=== PATIENT | female | born 1960 | race Caucasian/White ===

== ENCOUNTER 2016-07-31 10:39 | Emergency (ER) | payer SELFPAY ==
[~2016-07-31] VITALS: Ht 170.2 cm; Wt 75.0 kg
[2016-07-31 10:42] VITALS: BP 144/80; PULSE 87; RESP 18; TEMP 98; O2SAT 96
--- NOTE | 2016-07-31 11:46 | PD ---
HPI Chief Complaint: Neuro Symptoms/ Deficits Time Seen by Provider: 11:46 Travel History International Travel<30 days: No Contact w/Intl Traveler<30days: No Traveled to known affect area: No History of Present Illness HPI Patient is a 56-year-old female presenting to emergency evaluation of headache as well as right arm numbness. Patient states the headache has been ongoing for approximately one month. She states it is pressure-like all over her head into her neck. She reports the pain as an 8 out of 10. She states the right arm numbness started 3-4 days ago it radiates down her arm and she feels tingling and her entire hand. She also reports feeling fatigued and just generally weak. She denies any recent fevers or chills, abdominal pain, nasal congestion. She does report nausea intermittently as well as a recent bout of diarrhea but that resolved 2 days ago and only lasted for 2 days. Patient's past medical history significant for diabetes, hypothyroidism, hypertension, hyperlipidemia. She is from [place] and has been in the area visiting for 3 days. [facility] Past Medical History High Cholesterol: Yes Diabetes: Yes Hypertension: Yes Thyroid Disease: Yes ?: Not Past Surgical History Surgical History: No Previous Surgery Social History Alcohol Use: No Tobacco Use: No Substance Use: No Allergies-Medications (Allergen,Severity, Reaction): Coded Allergies: Penicillin (Verified Allergy, Unknown, 07/31/16) Reported Meds & Prescriptions Reported Meds & Active Scripts Active Tramadol (Tramadol HCl) 50 Mg Tab 50 Mg PO Q8H PRN Naprosyn (Naproxen) 500 Mg Tab 500 Mg PO BID PRN Cipro (Ciprofloxacin HCl) 500 Mg Tab 500 Mg PO BID 5 Days Review of Systems Except as stated in HPI: all other systems reviewed are Neg General / Constitutional: No: Fever, Chills Eyes: No: Photophobia, Visual changes HENT: Positive: Headaches, Neck Pain, No: Lightheadedness Cardiovascular: No: Chest Pain or Discomfort Respiratory: No: Shortness of Breath Gastrointestinal: Positive: Nausea, Diarrhea (now resolved), No: Vomiting, Abdominal Pain Genitourinary: No: Dysuria Musculoskeletal: No: Myalgias Neurologic: Positive: Sensory Disturbance, No: Weakness, Dizziness, Syncope, Focal Abnormalities Physical Exam Narrative GENERAL: Well-developed, well-nourished, alert female. Resting comfortably in no acute distress. SKIN: Warm and dry. HEAD: Atraumatic. Normocephalic. Tenderness to palpation over her ethmoid and maxillary sinuses. EYES: Pupils equal and round. No scleral icterus. No injection or drainage. Extraocular movements are intact ENT: No nasal bleeding or discharge. Mucous membranes pink and moist. NECK: Trachea midline. No JVD. CARDIOVASCULAR: Regular rate and rhythm. No murmur appreciated. RESPIRATORY: No accessory muscle use. Clear to auscultation. Breath sounds equal bilaterally. GASTROINTESTINAL: Abdomen soft, non-tender, nondistended. Hepatic and splenic margins not palpable. MUSCULOSKELETAL: No obvious deformities. No clubbing. No cyanosis. No edema. NEUROLOGICAL: Awake and alert. No obvious cranial nerve deficits. Motor grossly within normal limits. Normal speech. PSYCHIATRIC: Appropriate mood and affect; insight and judgment normal. Data Data Last Documented VS Vital Signs Date Time Temp Pulse Resp B/P Pulse Ox O2 Delivery O2 Flow Rate FiO2 07/31/16 10:42 98.0 87 18 144/80 96 Orders Complete Blood Count With Diff (07/31/16 11:44) Comprehensive Metabolic Panel (07/31/16 11:44) Prothrombin Time / Inr (Pt) (07/31/16 11:44) Act Partial Throm Time (Ptt) (07/31/16 11:44) Ct Brain W/O Iv Contrast(Rout) (07/31/16 11:44) Ct Cerv Spine W/O Contrast (07/31/16 ) Urinalysis - C+S If Indicated (07/31/16 11:46) Urine Culture (07/31/16 11:50) Electrocardiogram (07/31/16 12:14) Labs Laboratory Tests Test 07/31/16 11:50 White Blood Count 7.5 TH/MM3 Red Blood Count 4.56 MIL/MM3 Hemoglobin 13.2 GM/DL Hematocrit 39.0 % Mean Corpuscular Volume 85.5 FL Mean Corpuscular Hemoglobin 28.8 PG Mean Corpuscular Hemoglobin 33.7 % Concent Red Cell Distribution Width 13.8 % Platelet Count 300 TH/MM3 Mean Platelet Volume 8.1 FL Neutrophils (%) (Auto) 75.8 % Lymphocytes (%) (Auto) 16.9 % Monocytes (%) (Auto) 5.7 % Eosinophils (%) (Auto) 1.0 % Basophils (%) (Auto) 0.6 % Neutrophils # (Auto) 5.7 TH/MM3 Lymphocytes # (Auto) 1.3 TH/MM3 Monocytes # (Auto) 0.4 TH/MM3 Eosinophils # (Auto) 0.1 TH/MM3 Basophils # (Auto) 0.0 TH/MM3 CBC Comment DIFF FINAL Differential Comment Prothrombin Time 10.7 SEC Prothromb Time International 1.0 RATIO Ratio Activated Partial 22.6 SEC Thromboplast Time Urine Color YELLOW Urine Turbidity HAZY Urine pH 6.5 Urine Specific [place] 1.023 Urine Protein TRACE mg/dL Urine Glucose (UA) 1000 mg/dL Urine Ketones 10 mg/dL Urine Occult Blood SMALL Urine Nitrite NEG Urine Bilirubin NEG Urine Urobilinogen LESS THAN 2.0 MG/DL Urine Leukocyte Esterase LARGE Urine RBC 19 /hpf Urine WBC 125 /hpf Urine Squamous Epithelial 4 /hpf Cells Urine Bacteria RARE /hpf Urine Mucus FEW /lpf Microscopic Urinalysis Comment CULTURE INDICATED Sodium Level 140 MEQ/L Potassium Level 4.2 MEQ/L Chloride Level 104 MEQ/L Carbon Dioxide Level 24.9 MEQ/L Anion Gap 11 MEQ/L Blood Urea Nitrogen 14 MG/DL Creatinine 0.72 MG/DL Estimat Glomerular Filtration 84 ML/MIN Rate Random Glucose 248 MG/DL Calcium Level 8.7 MG/DL Total Bilirubin 0.5 MG/DL Aspartate Amino Transf 11 U/L (AST/SGOT) Alanine Aminotransferase 25 U/L (ALT/SGPT) Alkaline Phosphatase 51 U/L Total Protein 6.7 GM/DL Albumin 3.6 GM/DL MDM Medical Decision Making Medical Screen Exam Complete: Yes Emergency Medical Condition: Yes Interpretation(s) Vital Signs Date Time Temp Pulse Resp B/P Pulse Ox O2 Delivery O2 Flow Rate FiO2 07/31/16 10:42 98.0 87 18 144/80 96 Differential Diagnosis CVA versus sinusitis versus tension headache versus cluster headaches versus radiculopathy versus other Narrative Course Patient is a 56-year-old female presenting to emergency department for evaluation of headaches and right arm numbness. Symptoms have been ongoing for several days in regards to the numbness in her arm and the headache symptoms have been ongoing for 1 month. Labs and imaging ordered and pending. It seems more likely that the numbness is related to a radiculopathy, patient is neurologically intact on exam at this time. Headaches could be related to an acute sinusitis, cluster headaches. Workup initiated in triage, care patient will be transferred to provide her with medical bed is available. Scripts Tramadol 50 Mg Tab50 Mg PO Q8H PRN (PAIN) #15 TAB Ref 0 Prov:Sascha Levine MD 07/31/16 Naproxen (Naprosyn)500 Mg [id number] Mg PO BID PRN (PAIN SCALE 1 TO 10) #20 TAB Prov:Sascha Levine MD 07/31/16 Ciprofloxacin (Cipro)500 Mg [id number] Mg PO BID 5 Days Ref 0 Prov:Sascha Levine MD 07/31/16 Lucia Barron Jul 31, 2016 11:46
[2016-07-31 12:08] LABS: AUTOMATED NEUTROPHIL # 5.7 TH/MM3 (1.8-7.7); BASOPHIL % 0.6 % (0.0-2.0); EOSINOPHIL # 0.1 TH/MM3 (0-0.4); HEMO FLAGS DIFF FINAL; LYMPH % 16.9 % (9.0-44.0); LYMPHOCYTE # 1.3 TH/MM3 (1.0-4.8); MEAN CELL VOLUME 85.5 FL (80.0-100.0); MEAN CORPUSCULAR HEMOGLOBIN 28.8 PG (27.0-34.0); MEAN CORPUSCULAR HGB CONC 33.7 % (32.0-36.0); MONO % 5.7 % (0.0-8.0); NEUT % 75.8 % (16.0-70.0); PLATELET COUNT 300 TH/MM3 (150-450); RED BLOOD COUNT 4.56 MIL/MM3 (4.00-5.30); RED CELL DISTRIBUTION WIDTH 13.8 % (11.6-17.2); WHITE BLOOD COUNT 7.5 TH/MM3 (4.0-11.0)
[2016-07-31 12:16] LABS: APTT (PATIENT) 22.6 SEC (24.3-30.1); PROTHROMBIN TIME - PATIENT 10.7 SEC (9.8-11.6)
[2016-07-31 12:24] LABS: BACTERIA, URINE RARE /hpf; BLOOD, URINE SMALL (NEG); COMMENT (UR) CULTURE INDICATED; CULTURE IF INDICATED CULTURE INDICATED; GLUCOSE,URINE 1000 mg/dL (NEG); KETONE, URINE 10 mg/dL (NEG); MUCUS URINE FEW /lpf (OCC); NITRITE,URINE NEG (NEG); PH, URINE 6.5 (5.0-8.5); SQUAMOUS EPITHELIAL CELL URINE 4 /hpf (0-5); URINE COLOR YELLOW (YELLW/STRAW)
[2016-07-31 12:40] LABS: ALT (GPT) 25 U/L (10-53); ANION GAP 11 MEQ/L (5-15); AST (GOT) 11 U/L (15-37); BICARBONATE 24.9 MEQ/L (21.0-32.0); BLOOD UREA NITROGEN 14 MG/DL (7-18); CHLORIDE 104 MEQ/L (98-107); GLOMERULAR FILTRATION RATE 84 ML/MIN (>89); POTASSIUM 4.2 MEQ/L (3.5-5.1); SODIUM (NA) 140 MEQ/L (136-145)
[2016-07-31 12:42] LABS: ALKALINE PHOSPHATASE 51 U/L (45-117); TOTAL BILIRUBIN ADULT 0.5 MG/DL (0.2-1.0)
--- NOTE | 2016-07-31 13:01 | RADRPT ---
EXAM DATE/TIME: 07/31/2016 12:37 [facility] COMPARISON: No previous studies available for comparison. INDICATIONS : Headache for one month, right arm numbness for four days. RADIATION DOSE: 56.36 CTDIvol (mGy) MEDICAL HISTORY : Hypertension. diabetes,thyroid disease SURGICAL HISTORY : None. ENCOUNTER: Initial ACUITY: 1 month PAIN SCALE: 8/10 LOCATION: cranial TECHNIQUE: Multiple contiguous axial images were obtained of the head. Using automated exposure control and adj ustment of the mA and/or kV according to patient size, radiation dose was kept as low as reasonably a chievable to obtain optimal diagnostic quality images. FINDINGS: CEREBRUM: The ventricles are normal. No evidence of midline shift, mass lesion, hemorrhage or acute infarction . No extra-axial fluid collections are seen. POSTERIOR FOSSA: The cerebellum and brainstem are intact. The 4th ventricle is midline. The cerebellopontine angle i s unremarkable. EXTRACRANIAL: Visualized sinuses are clear. SKULL: The calvaria is intact. No evidence of skull fracture. CONCLUSION: No acute intracranial abnormality is identified. Erick Mackenzie MD on July 31, 2016 at 12:58 Board Certified Radiologist. This report was verified electronically.
--- NOTE | 2016-07-31 13:15 | RADRPT ---
EXAM DATE/TIME: 07/31/2016 12:37 [facility] COMPARISON: No previous studies available for comparison. INDICATIONS : Headache for one month,right arm numbness for four days. RADIATION DOSE: 35.33 CTDIvol (mGy) MEDICAL HISTORY : Hypertension. Diabetes,thyroid disease SURGICAL HISTORY : None. ENCOUNTER: Initial ACUITY: 1 month PAIN SCALE: 8/10 LOCATION: Right neck TECHNIQUE: Volumetric scanning of the cervical spine was performed. Multiplanar reconstructions in the sagittal, coronal and oblique axial planes were performed. Using automated exposure control and adjustment o f the mA and/or kV according to patient size, radiation dose was kept as low as reasonably achievable to obtain optimal diagnostic quality images. FINDINGS: VERTEBRAE: Normal vertebral body height. No fracture. ALIGNMENT: No evidence of subluxation. Facets are well aligned. Craniocervical junction and tach. C2-C3: The bony spinal canal is normal in size. No evidence of disc bulge or herniation. The neural forami na are bilaterally patent. C3-C4: Minimal broad-based disc bulge abuts the ventral thecal sac. The neural foramina are bilaterally pat ent. C4-C5: The bony spinal canal is normal in size. No evidence of disc bulge or herniation. The neural forami na are bilaterally patent. C5-C6: Degenerative disease. Minimal broad-based posterior disc osteophyte complex abuts the ventral thecal sac. Mild neural foraminal bilaterally. C6-C7: The bony spinal canal is normal in size. No evidence of disc bulge or herniation. The neural forami na are bilaterally patent. C7-T1: The bony spinal canal is normal in size. No evidence of disc bulge or herniation. The neural forami na are bilaterally patent. CONCLUSION: 1. Minimal disc bulges/protrusions as described above. 2. Degenerative changes greatest at C5-6. 3. No canal stenosis or significant neural foraminal narrowing. Viktor Smiley MD on July 31, 2016 at 13:10 Board Certified Radiologist. This report was verified electronically.
[2016-07-31] MEDS ORDERED: NAPR500 PO (14:07)
[2016-07-31] MEDS ORDERED: TRAM50TA PO (14:07)
[2016-07-31] MEDS ORDERED: CIPR-9 PO (14:07)
--- NOTE | 2016-07-31 14:07 | PD ---
Data Data Last Documented VS Vital Signs Date Time Temp Pulse Resp B/P Pulse Ox O2 Delivery O2 Flow Rate FiO2 07/31/16 10:42 98.0 87 18 144/80 96 Orders Complete Blood Count With Diff (07/31/16 11:44) Comprehensive Metabolic Panel (07/31/16 11:44) Prothrombin Time / Inr (Pt) (07/31/16 11:44) Act Partial Throm Time (Ptt) (07/31/16 11:44) Ct Brain W/O Iv Contrast(Rout) (07/31/16 11:44) Ct Cerv Spine W/O Contrast (07/31/16 ) Urinalysis - C+S If Indicated (07/31/16 11:46) Urine Culture (07/31/16 11:50) Labs Laboratory Tests Test 07/31/16 11:50 White Blood Count 7.5 TH/MM3 Red Blood Count 4.56 MIL/MM3 Hemoglobin 13.2 GM/DL Hematocrit 39.0 % Mean Corpuscular Volume 85.5 FL Mean Corpuscular Hemoglobin 28.8 PG Mean Corpuscular Hemoglobin 33.7 % Concent Red Cell Distribution Width 13.8 % Platelet Count 300 TH/MM3 Mean Platelet Volume 8.1 FL Neutrophils (%) (Auto) 75.8 % Lymphocytes (%) (Auto) 16.9 % Monocytes (%) (Auto) 5.7 % Eosinophils (%) (Auto) 1.0 % Basophils (%) (Auto) 0.6 % Neutrophils # (Auto) 5.7 TH/MM3 Lymphocytes # (Auto) 1.3 TH/MM3 Monocytes # (Auto) 0.4 TH/MM3 Eosinophils # (Auto) 0.1 TH/MM3 Basophils # (Auto) 0.0 TH/MM3 CBC Comment DIFF FINAL Differential Comment Prothrombin Time 10.7 SEC Prothromb Time International 1.0 RATIO Ratio Activated Partial 22.6 SEC Thromboplast Time Urine Color YELLOW Urine Turbidity HAZY Urine pH 6.5 Urine Specific [place] 1.023 Urine Protein TRACE mg/dL Urine Glucose (UA) 1000 mg/dL Urine Ketones 10 mg/dL Urine Occult Blood SMALL Urine Nitrite NEG Urine Bilirubin NEG Urine Urobilinogen LESS THAN 2.0 MG/DL Urine Leukocyte Esterase LARGE Urine RBC 19 /hpf Urine WBC 125 /hpf Urine Squamous Epithelial 4 /hpf Cells Urine Bacteria RARE /hpf Urine Mucus FEW /lpf Microscopic Urinalysis Comment CULTURE INDICATED Sodium Level 140 MEQ/L Potassium Level 4.2 MEQ/L Chloride Level 104 MEQ/L Carbon Dioxide Level 24.9 MEQ/L Anion Gap 11 MEQ/L Blood Urea Nitrogen 14 MG/DL Creatinine 0.72 MG/DL Estimat Glomerular Filtration 84 ML/MIN Rate Random Glucose 248 MG/DL Calcium Level 8.7 MG/DL Total Bilirubin 0.5 MG/DL Aspartate Amino Transf 11 U/L (AST/SGOT) Alanine Aminotransferase 25 U/L (ALT/SGPT) Alkaline Phosphatase 51 U/L Total Protein 6.7 GM/DL Albumin 3.6 GM/DL MDM Supervised Visit with HUSAM: Yes Narrative Course Assumed care patient. 56 year-old woman with headache mostly in the back radiating into the front constant for the past month with waxing and waning as well as now right arm numbness. She also been feeling foggy. She has a history of stroke with right sided deficits are completely resolved. She does not really had this type and neck are headache problems in the past. She has not seen a doctor for headaches in the past. She has some subjective paresthesias in her right arm. Otherwise her neurologic exam is really unremarkable. She does have some significant tenderness to the paraspinous muscles in the back of her neck. FINAL: I think this is a cervicogenic headache with some radiculopathy. She could be having some recrudescence of her old stroke symptoms on the right side but think Less likely. I don't see any evidence of tumor on her CT. No evidence of acute stroke. Recommend supportive treatment for the headaches, treatment for UTI, and outpatient follow-up. Diagnosis Primary Impression: Cervicogenic headache Additional Impressions: Radiculopathy Qualified Code: M54.12 - Cervical radiculopathy Acute cystitis without hematuria Additional Instruction: Take antibiotics as prescribed. Take Naprosyn as prescribed. Take tramadol in addition to Naprosyn as needed for severe pain. Follow-up with a primary physician at the first available appointment for further evaluation. Return to the emergency department for any worsening numbness tingling weakness confusion lethargy or any other new or worsening symptoms. Med/Other Pt SpecificInfo: Prescription(s) given Scripts Tramadol 50 Mg Tab50 Mg PO Q8H PRN (PAIN) #15 TAB Ref 0 Prov:Sascha Levine MD 07/31/16 Naproxen (Naprosyn)500 Mg [id number] Mg PO BID PRN (PAIN SCALE 1 TO 10) #20 TAB Prov:Sascha Levine MD 07/31/16 Ciprofloxacin (Cipro)500 Mg [id number] Mg PO BID 5 Days Ref 0 Prov:Sascha Levine MD 07/31/16 Disposition: 01 DISCHARGE HOME Condition: Stable Sascha Levine MD Jul 31, 2016 14:07
--- NOTE | 2016-08-02 10:29 | EKG ---
Date Performed: 07/31/2016 Time Performed: 12:14:59 PTAGE: 56 years EKG: Sinus rhythm MARKED LEFT AXIS DEVIATION PATTERN CONSISTENT WITH PULMONARY DISEASE ABNORMAL ECG NO PREVIOUS TRACING DOCTOR: Paramjit Gerber Interpretating Date/Time 08/02/2016 10:28:41
== END 2016-07-31 15:23 | disposition home or self-care (01) ==
LOC: NEPA 10:39
DX: G44.89 Other headache syndrome (principal); M54.12 Radiculopathy, cervical region; R20.0 Anesthesia of skin; B96.20 Unspecified Escherichia coli [E. coli] as the cause of diseases classified elsewhere; R53.1 Weakness; R94.31 Abnormal electrocardiogram [ECG] [EKG]; E11.9 Type 2 diabetes mellitus without complications; I10 Essential (primary) hypertension
CPT/HCPCS: 70450; 72125; 80053; 81001; 85025; 85610; 85730; 87077; 87086; 87186; 93005